=== PATIENT | male | born 1970 | race Hispanic/Latino ===

== ENCOUNTER 2017-08-25 08:03 | Emergency (ER) | payer SELFPAY ==
[2017-08-25 08:37] LABS: #Eosinphils 0.1 thou/uL (0.0-0.7); #Lymphocytes 1.7 thou/uL (1.20-3.40); #Monocytes 0.4 thou/uL (0.11-0.59); #Neutrophils 4.8 thou/uL (1.40-6.50); %Basophils 0.2 % (0.0-1.0); %Eosinophils 1.3 % (0.0-10.0); %Lymphocytes 23.8 % (21.0-51.0); %Monocytes 5.5 % (0.0-10.0); %Neutrophils 69.2 % (42.0-75.0); Hemoglobin 16.3 g/dL (14.0-18.0); Mean Corpuscular HGB CONC 35.2 g/dL (32.0-36.0); Mean Corpuscular Hemoglobin 33.4 pg (27.0-31.0); Mean Corpuscular Volume 94.8 fl (80.0-94.0); Mean Platelet Volume 7.5 fL (7.4-10.4); Platelet Count 194 thou/uL (130-400); RBC Distribution Width 12.1 % (11.5-14.5); Red Blood Cell (RBC) Count 4.88 mill/uL (4.70-6.10)
[2017-08-25 08:46] LABS: Bilirubin Negative (Negative); Blood, Urine Negative (Negative); Clarity CLEAR (Clear); Glucose, Urine (Dipstick) >=1000 mg/dL (Negative); Leukocyte Negative (Negative); Nitrite Negative (Negative); Protein, Urine (Dipstick) Negative (Neg-Trace); Specific Gravity, Urine 1.029 (1.002-1.036); Urobilinogen 0.2 mg/dL (0.2-1.0); pH, Urine 5.5 (5.0-9.0)
[2017-08-25 08:59] LABS: ALT (SGPT) 25 U/L (8-55); AST (SGOT) 25 U/L (5-34); Albumin 3.8 g/dL (3.5-5.0); Alkaline Phosphatase 124 U/L (40-150); Anion Gap 11 mmol/L (10-20); BUN (Urea Nitrogen) 14 mg/dL (8.9-20.6); Bilirubin, Total 0.6 mg/dL (0.2-1.2); Calc. Creatinine Clearance 0 mL/min (70-130); Calcium 9.4 mg/dL (7.8-10.44); Carbon Dioxide 24 mmol/L (22-29); Chloride 109 mmol/L (98-107); Estimated GFR-MDRD 84; Globulin 3.7 g/dL (2.4-3.5); Glucose 290 mg/dL (70-105); Potassium 4.1 mmol/L (3.5-5.1); Protein, Total 7.5 g/dL (6.0-8.3); Sodium 140 mmol/L (136-145)
[2017-08-25] MEDS ORDERED: Ondansetron HCl/PF 4 MG/2 ML Vial ONE (09:05)
[2017-08-25 09:15] LABS: Magnesium 2.3 mg/dL (1.6-2.6); Phosphorus 2.7 mg/dL (2.3-4.7)
[2017-08-25 09:27] LABS: Base Excess-Venous -1.5 mmol/L (-30.0-30.0); Bicarbonate (HCO3v) 23.4 mmol/L (1.0-85.0); CO2 Tension (PvCO2) 39.3 mmHg (41.0-51.0); Hemoglobin - Calc 14.8 g/dL (12.0-18.0); O2 Tension (PvO2) 77.3 mmHg (35.0-45.0); T. Carbon Dioxide 24.6 mmol/L (1.0-85.0); pH (Venous) 7.384 (7.35-7.45); vO2 Saturation-calc 95.1 % (0.0-100.0)
== END 2017-08-25 11:22 | disposition home or self-care (01) ==
LOC: ERS 08:03
DX: E11.65 Type 2 diabetes mellitus with hyperglycemia (principal); R11.2 Nausea with vomiting, unspecified; Z79.899 Other long term (current) drug therapy
CPT/HCPCS: 36415; 36416; 80053; 81003; 82010; 82330; 82803; 83735; 84100; 85025; 96361; 96374; J2405

== ENCOUNTER 2017-11-28 09:44 | Emergency (ER) | payer SELFPAY | END 2017-11-28 12:37 | disposition left against medical advice (07) | LOC: ERS 09:44 | DX: Z53.21 Procedure and treatment not carried out due to patient leaving prior to being seen by health care provider (principal) | CPT/HCPCS: 36416 ==

== ENCOUNTER 2020-04-25 10:38 | Inpatient (IN) | payer OTHER, SELFPAY ==
[2020-04-25] MEDS ORDERED: Lorazepam 2 MG/ML VIAL ONE (10:51)
[2020-04-25] MEDS ORDERED: PROPOFOL 20 ML ONE (11:01)
[2020-04-25] MEDS ORDERED: Succinylcholine Chloride 20 MG/ML 10 ml SYRINGE FS ONE (11:01)
[2020-04-25] MEDS ORDERED: DOBUTamine 500 mg/250 ml 250 ML ONE (11:05)
[2020-04-25] MEDS ORDERED: EPINEPHrine 1 MG/10 ML Abboject SYRINGE ONE (11:11)
[2020-04-25 11:19] LABS: #Basophils 0.1 thou/uL (0.0-0.2); #Lymphocytes 2.2 thou/uL (1.20-3.40); #Monocytes 0.7 thou/uL (0.11-0.59); #Neutrophils 7.5 thou/uL (1.40-6.50); %Basophils 0.5 % (0.0-1.0); %Eosinophils 0.2 % (0.0-10.0); %Lymphocytes 20.7 % (21.0-51.0); %Monocytes 6.7 % (0.0-10.0); %Neutrophils 71.9 % (42.0-75.0); Hemoglobin 14.2 g/dL (14.0-18.0); Mean Corpuscular HGB CONC 34.3 g/dL (32.0-36.0); Mean Corpuscular Hemoglobin 33.6 pg (27.0-31.0); Mean Corpuscular Volume 97.9 fL (78.0-98.0); Mean Platelet Volume 9.2 fL (7.4-10.4); Platelet Count 213 thou/uL (130-400); RBC Distribution Width 12.5 % (11.5-14.5); Red Blood Cell (RBC) Count 4.23 mill/uL (4.70-6.10); White Blood Cell (WBC) Count 10.5 thou/uL (4.8-10.8)
[2020-04-25] MEDS ORDERED: Fentanyl 100 MCG/2 ML VIAL ONE ×2 (11:24→11:48)
[2020-04-25 11:25] LABS: INR-International Normal Ratio 1.2; PTT 26.2 sec (22.9-36.1)
[2020-04-25] MEDS ORDERED: fentaNYL Citrate/PF 2,000 MCG in Sodium Chloride 0.9% 60 ML IV SCH ×3 (11:30→14:08)
[2020-04-25] MEDS ORDERED: EPINEPHrine 1 MG/ML AMP ONE (11:32)
--- NOTE | 2020-04-25 11:37 | RAD ---
Exam: Chest one view HISTORY:Chest pain Comparison: 05/26/2012 FINDINGS: Lines and tubes: Endotracheal tube approximately 1 cm above the alaina. Nasogastric tube extends beyo nd the diaphragm. Cardiac silhouette:Cardiomegaly. Aorta: Unremarkable Pulmonary vessels: Normal Costophrenic angles: Clear LUNGS: Hypoventilation. Accentuation lung parenchyma likely due to diminished lung volumes. Pneumothorax: None Osseous abnormalities: None IMPRESSION: 1. Endotracheal tube and nasogastric tube as above. Distal tip of the endotracheal is approximately 1 cm above the alaina. Consider repositioning.
[2020-04-25 11:40] LABS: ALT (SGPT) 32 U/L (8-55); AST (SGOT) 29 U/L (5-34); Albumin 3.8 g/dL (3.5-5.0); Alkaline Phosphatase 48 U/L (40-110); Anion Gap 23 mmol/L (10-20); BUN (Urea Nitrogen) 43 mg/dL (8.9-20.6); Bilirubin, Total 0.5 mg/dL (0.2-1.2); Calc. Creatinine Clearance 0 mL/min (70-130); Calcium 8.5 mg/dL (7.8-10.44); Carbon Dioxide 12 mmol/L (22-29); Chloride 108 mmol/L (98-107); Estimated GFR-MDRD 24; Globulin 3.1 g/dL (2.4-3.5); Glucose 222 mg/dL (70-105); Potassium 5.9 mmol/L (3.5-5.1); Protein, Total 6.9 g/dL (6.0-8.3); Sodium 137 mmol/L (136-145)
[2020-04-25 12:02] LABS: CKMB 1.5 ng/mL (0-6.6)
[2020-04-25 12:13] LABS: Bilirubin 1+ (Negative); Blood, Urine Negative (Negative); Calcium Oxalate Crystals Rare HPF (None Seen); Clarity Extra Turbid (Clear); Glucose, Urine (Dipstick) 50 mg/dL (Negative); Ketone, Urine Trace mg/dL (Negative); Leukocyte Negative Leu/uL (Negative); Nitrite Negative (Negative); Protein, Urine (Dipstick) 300 mg/dL (Neg-Trace); RBC/HPF 0-3 HPF (0-3); Specific Gravity, Urine 1.027 (1.002-1.036); Squamous Epithelial 0-3 HPF (0-3); pH, Urine 5.5 (5.0-9.0)
[2020-04-25 12:14] LABS: Bacteria/HPF 1+ HPF (None Seen)
[2020-04-25] MEDS ORDERED: Sodium Chloride 0.9% 200 ML IV PRN (12:21)
[2020-04-25 12:45] LABS: Actual Bicarbonate (HCO3a) 13.8 mEq/L (22-28); Base Excess (BEa) -12.5 mEq/L (-2.0 to +3.0); CO2 Tension 33.3 mmHg (35.0-45.0); Calcium, Ionized (arterial) 1.09 mmol/L (1.12-1.30); Carboxyhemoglobin (COHb) 0.1 gm% (0.0-3.0); Hemoglobin (Hb) 13.9 g/dL (14.0-18.0); O2 Tension (PaO2), arterial 189.3 mmHg (80.0-100.0)
[2020-04-25 12:49] LABS: Puncture Site RRAD; pH, Arterial 7.24 (7.35-7.45)
[2020-04-25 12:50] LABS: ALV-art Gradient 125.575 (0-20)
[2020-04-25] MEDS ORDERED: Propofol BOLUS 1,000 MG/100 ML VIAL IV PRN (12:54)
[2020-04-25] MEDS ORDERED: Lorazepam 2 MG/ML VIAL SLOW IVP PRN (12:54)
[2020-04-25] MEDS ORDERED: Fentanyl BOLUS 250 ML IVPB PRN (12:54)
[2020-04-25] MEDS ORDERED: Morphine 2 MG/ML VIAL SLOW IVP PRN (12:54)
[2020-04-25] MEDS ORDERED: DISCONTINUE PREVIOUS NARCOTIC PAIN MEDICATIONS AND BENZODIAZEPINES FS SCH (12:54)
[2020-04-25] MEDS ORDERED: Ventilator Sedation Protocol 1 EACH FS SCH (13:00)
--- NOTE | 2020-04-25 13:24 | CON ---
DATE OF CONSULTATION: 04/25/2020 REASON FOR CONSULTATION: Complete heart block. HISTORY OF PRESENT ILLNESS: Mr. Raines is a 49-year-old gentleman, who comes to the hospital [facility] after he was not feeling well and had a syncopal spell. He came into the [facility] and was found to have a heart rate in the 30s, so he was immediately transferred over. When he came in to the emergency, he was very short winded, heart rate in the 20s, in complete heart block. He actually also had a seizure at that time, so he was intubated to protect his airway. He did get epinephrine drip as well as dobutamine drip without improvement in his heart rate. His blood pressure was in the 120s at one time. He was transcutaneously paced; however, the pacer was not really pacing him. His heart rate remained in the 30s. I came in. On my evaluation, he remained bradycardic and unstable, so he was taken emergently to the catheterization lab, where he received a temporary pacemaker. His blood pressure immediately came back up to the 160s, and epinephrine drip has been stopped. We are pacing him successfully at 100 beats per minute. I cannot get much history from him. We were planning on doing a heart catheterization as well; however, he had a creatinine of 2.8, so it would be a high risk and there is something better discussed with him. No evidence of ST-elevations on EKG. PAST MEDICAL HISTORY: From old chart preview: 1. Type 2 diabetes. 2. Noncompliance with medications in the past. 3. Possibly diabetic neuropathy. 4. Obesity. 5. Chronic back pain. PAST SURGICAL HISTORY: None. OUTPATIENT MEDICATIONS: Unobtainable at this time. We are awaiting his medication list. SOCIAL HISTORY: He is currently an inmate. 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 No alcohol, tobacco, or drugs. From the social history in 2016, had two children at that time, living in [place], currently in [facility]. FAMILY HISTORY: Sister with diabetes and end-stage renal disease, transplant recipient. REVIEW OF SYSTEMS: Unobtainable as the patient is intubated. PHYSICAL EXAMINATION: VITAL SIGNS: Heart rate of 29, up to 100 now, paced, blood pressure 168/72 after being paced, respiratory rate 18, saturating 96% on room air, temperature 97.2. GENERAL: Sedated, intubated. NECK: Supple. LUNGS: Clear. CARDIOVASCULAR: S1 and S2. No S3 or S4. Heart rate in the 30s. ABDOMEN: Soft, nontender. EXTREMITIES: No edema. SKIN: Warm and dry. LABORATORY DATA: Laboratory work was reviewed. Sodium of 137, potassium was 5.9, chloride of 108, carbon dioxide of 12, anion gap of 23, BUN of 43, creatinine 2.78, unclear as to what his baseline might be now. GFR of 24, glucose of 222. Troponin initially 0.03 and CK-MB of 1.5. AST and ALT are normal as well as albumin. COVID test is pending. ASSESSMENT AND PLAN: 1. Third-degree heart block. 2. Cardiogenic shock requiring emergent temporary pacemaker. This is due to bradycardia heart block. 3. Type 2 diabetes. PLAN: 1. Continue transcutaneous pacing. 2. Continue to trend troponins. 3. apparently, there is history of him hitting his head, so we will do a CT of his brain to make sure there is no bleeding as he also had a seizure. 4. He will be admitted to ICU by hospitalist team. We will do an emergent CT of the brain now that he is more stable. 5. We will hold off on heart catheterization at this time as I have to know if there is any bleeding in his brain before attempting any intervention. 6. Hopefully, this is just related to complete heart block, and he will be better now that heart rate has been restored. 7. He will likely need permanent pacemaker tomorrow depending on clinical evolution. 8. We will get an echocardiogram. 9. The patient is critically ill, and would not be unexpected. 10. 90 minutes of critical care time including the ER evaluation and care and resuscitation, pacemaker placement. Job ID: [id number]
[2020-04-25] MEDS: Sodium Bicarbonate 150 MEQ in Dextrose 5% in Water 1,000 ML IV SCH ×2 (14:04→21:33)
[2020-04-25] MEDS: Heparin 5,000 UNITS/ML VIAL SC SCH ×2 (14:06→20:35)
[2020-04-25 14:07] LABS: SARS-CoV-2 NAA Rapid Test Not Detected (NotDetected)
[2020-04-25 14:10] LABS: Anion Gap 20 mmol/L (10-20); BUN (Urea Nitrogen) 43 mg/dL (8.9-20.6); Calc. Creatinine Clearance 62 mL/min (70-130); Calcium 8.3 mg/dL (7.8-10.44); Carbon Dioxide 15 mmol/L (22-29); Chloride 108 mmol/L (98-107); Estimated GFR-MDRD 26; Glucose 232 mg/dL (70-105); Potassium 5.8 mmol/L (3.5-5.1); Sodium 137 mmol/L (136-145)
[2020-04-25 14:22] LABS: Troponin I 0.031 ng/mL (< 0.028)
[2020-04-25] MEDS: Propofol 1,000 MG/100 ML VIAL IV PRN ×3 (15:19→21:15)
--- NOTE | 2020-04-25 17:08 | ULT ---
RENAL ULTRASOUND: Date: 04-25-2020 PROVIDED CLINICAL HISTORY: Acute kidney injury. FINDINGS: Right kidney measures about 10.3 x 6.5 x 7 cm and demonstrates no evidence for hydronephrosis or mass . Left kidney measures about 12 x 6 x 6 cm and demonstrates no evidence for hydronephrosis or mass. The urinary bladder is decompressed by Olivier catheter and not well evaluated. IMPRESSION: No evidence for hydronephrosis. POS: DARIUS
[2020-04-25] MEDS ORDERED: CCU Insulin Drip FS ONE (17:53)
[2020-04-25] MEDS ORDERED: Dextrose 5% in Water 1,000 ML IV PRN (17:55)
[2020-04-25] MEDS ORDERED: Dextrose 50% Abboject 50 ML SYRINGE SLOW IVP PRN (17:55)
--- NOTE | 2020-04-25 18:04 | PDOC.HHP ---
Hospitalist HPI - History of Present Illness Collapse and syncope History of Present Illness: 49 YO man with a PMH of DM who had a syncopal incident. Pt is currently intubated and sedated and unable to provide further hx. It is stated hat pt had a syncopal episode and when EMS got there, he was in 3rd degree heart block with his HR in the 20s. Pt was given Atropine with no response and then temporarily paced with some success. Upon arrival to the ER, the temporary pacing was not to be unsuccessful. Cardiology was consulted and pt was emergently taken to the laboratory coordinator for and emergent pacer. Also noted in the ER were 2 seizures which aborted spontaneously, so he was intubated for airway protection. Its unclear if pt has a seizure hx. Pt was also hypotensive and required pressors Pt is now s/p cath and pacer placement. He was seen in the ICU, intubated and sedated Hospitalist ROS - Review of Systems ROS unobtainable: due to endotracheal tube (Unable to obtain) - Medication Medications: Active Medications Generic Name Dose Route Start Last Admin Trade Name Freq PRN Reason Stop Dose Admin Heparin Sodium (Porcine) 5,000 units 04/25/20 15:00 04/25/20 14:06 Heparin SC 5,000 units TID ESTRELLA Administration Sodium Bicarbonate 150 meq/ 1,150 mls @ 125 mls/hr 04/25/20 13:00 04/25/20 14 :04 Dextrose/Water IV 1,150 mls .Q9H12M ESTRELLA Administration Propofol 1,000 mg 04/25/20 12:54 04/25/20 15:19 Diprivan IV 05/25/20 12:54 1,000 mg INF PRN Administration TO ACHIEVE GOAL RASS Protocol Hospitalist History - Past Medical History Source: other (Er Dr) Cardiac: reports: Syncope Endocrine: reports: Diabetes - Exam General - other findings: Intubated and sedated Eye: PERRL ENT: normocephalic atraumatic Neck: supple, symmetric, no JVD, no thyromegaly Heart: RRR, no murmur, no gallops, no rubs Respiratory: CTAB, no wheezes, no rales, no ronchi Gastrointestinal: soft, non-tender, non-distended, normal bowel sounds Extremities: no cyanosis, no clubbing Skin: no lesions Neurological - other findings: Sedated Musculoskeletal: normal strength, no muscle wasting Psychiatric - other findings: Sedated. Unable to assess. Hospitalist Results - Labs Result Diagrams: 04/25/20 11:02 04/25/20 13:27 Lab results: WBC 10.5 thou/uL (4.8-10.8) 04/25/20 11:02 Hgb 14.2 g/dL (14.0-18.0) 04/25/20 11:02 Hct 41.4 % (42.0-52.0) L 04/25/20 11:02 MCV 97.9 fL (78.0-98.0) 04/25/20 11:02 Plt Count 213 thou/uL (130-400) 04/25/20 11:02 Neutrophils % 71.9 % (42.0-75.0) 04/25/20 11:02 ABG pH 7.24 (7.35-7.45) L* 04/25/20 12:45 ABG pCO2 33.3 mmHg (35.0-45.0) L 04/25/20 12:45 ABG pO2 189.3 mmHg (80.0-100.0) H 04/25/20 12:45 Sodium 137 mmol/L (136-145) 04/25/20 13:27 Potassium 5.8 mmol/L (3.5-5.1) H 04/25/20 13:27 Chloride 108 mmol/L (98-107) H 04/25/20 13:27 Carbon Dioxide 15 mmol/L (22-29) L 04/25/20 13:27 BUN 43 mg/dL (8.9-20.6) H 04/25/20 13:27 Creatinine 2.63 mg/dL (0.7-1.3) H 04/25/20 13:27 Glucose 232 mg/dL (70-105) H 04/25/20 13:27 Calcium 8.3 mg/dL (7.8-10.44) 04/25/20 13:27 Total Bilirubin 0.5 mg/dL (0.2-1.2) 04/25/20 11:02 AST 29 U/L (5-34) 04/25/20 11:02 ALT 32 U/L (8-55) 04/25/20 11:02 Alkaline Phosphatase 48 U/L (40-110) 04/25/20 11:02 CK-MB (CK-2) 1.5 ng/mL (0-6.6) 04/25/20 11:01 Troponin I 0.031 ng/mL (< 0.028) H 04/25/20 13:27 Serum Total Protein 6.9 g/dL (6.0-8.3) 04/25/20 11:02 Albumin 3.8 g/dL (3.5-5.0) 04/25/20 11:02 Urine Ketones Trace mg/dL (Negative) A 04/25/20 11:51 Urine Blood Negative (Negative) 04/25/20 11:51 Urine Nitrite Negative (Negative) 04/25/20 11:51 Ur Leukocyte Esterase Negative Matilda/uL (Negative) 04/25/20 11:51 Urine RBC 0-3 HPF (0-3) 04/25/20 11:51 Urine WBC 11-20 HPF (0-3) A 04/25/20 11:51 Ur Squamous Epith Cells 0-3 HPF (0-3) 04/25/20 11:51 Urine Bacteria 1+ HPF (None Seen) A 04/25/20 11:51 Hospitalist H&P A/P - Problem (1) Third degree heart block Code(s): I44.2 - ATRIOVENTRICULAR BLOCK, COMPLETE Status: Acute Assessment and Plan: s/p temp emergent pacemaker placement. Cardiology is on board. Will follow up with their recs. Monitor on telemetry. 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 Will monitor BG, cover with SSI. Check HgA1c. (4) Obesities, morbid Code(s): E66.01 - MORBID (SEVERE) OBESITY DUE TO EXCESS CALORIES Status: Chronic Assessment and Plan: Will discuss when more appropriate. (5) Seizure Code(s): R56.9 - UNSPECIFIED CONVULSIONS Status: Acute Assessment and Plan: Unsure if pt has a hx of seizures. He is currently being sedated. Will need a CT brain and EEG when more stable. (6) Respiratory failure Code(s): J96.90 - RESPIRATORY FAILURE, UNSP, UNSP W HYPOXIA OR HYPERCAPNIA Status: Acute Qualifiers: Chronicity: acute Respiratory failure complication: hypoxia Qualified Code(s): J96.01 - Acute respiratory failure with hypoxia Assessment and Plan: Pt was intubated for airway protection after his sz. Will defer mgt to [facility]. (7) Syncope and collapse Code(s): R55 - SYNCOPE AND COLLAPSE Status: Acute Assessment and Plan: Likely form 3rd degree heart block. (8) Metabolic acidosis Code(s): E87.2 - ACIDOSIS Status: Acute Assessment and Plan: Pt is on bicarb drip. Renal is on board. Will monitor bicarb. - Plan Plan: PPx: SCDs. CODE: FULL. Dispo: Cont current mgt
[2020-04-25] MEDS ORDERED: Ondansetron PF 4 MG/2 ML Vial IVP PRN (18:15)
[2020-04-25 18:23] LABS: Troponin I 0.055 ng/mL (< 0.028)
[2020-04-25] MEDS: DOBUTamine 500 mg/250 ml 250 ML IVPB SCH (18:23)
[2020-04-25] MEDS ORDERED: HUMULIN R 100 UNITS in Sodium Chloride 0.9% 100 ML IVPB SCH (18:30)
--- NOTE | 2020-04-25 19:44 | CON ---
DATE OF CONSULTATION: HISTORY OF PRESENT ILLNESS: Yo Raines is a 49-year-old morbidly obese gentleman, who was transferred from [facility] via ambulance to [facility]. He was being bagged. Apparently, he was having some respiratory distress and was found to be in complete heart block. He was taken to the cardiac medical laboratory technicians and a temporary pacemaker was placed in since an external pacer was ineffective. He is presently intubated and sedated, so no additional information is obtained. PAST MEDICAL HISTORY: Includes diabetes, high cholesterol, hypertension. MEDICATIONS: Include: 1. Metformin 500 two a day. 2. Aspirin. 3. Pravastatin 10. 4. Gemfibrozil 600. 5. Lisinopril 20. PAST SURGICAL HISTORY: He has had no previous surgical procedures. Additional information from the he had a coronavirus serology done 2 weeks ago, which was negative. His EKG today shows complete heart block. REVIEW OF SYSTEMS: Otherwise, unobtainable. PHYSICAL EXAMINATION: VITAL SIGNS: His pulse is 100, he is being paced, blood pressure 130/80, sats 100%, and respiratory rate 15. HEENT: Pupils are equal. CHEST: No wheezing. No crackles. CARDIAC: Normal S1, S2. No gallops. ABDOMEN: No masses. LABORATORY DATA: Chest x-ray is clear. His labs were pertinent for creatinine of 2.78, BUN 43, potassium 5.3. PO2 of 189, pCO2 of 23, pH 7.24. White count 10,000, H and H 14 and 40, platelet count is normal. IMPRESSION: 1. Complete heart block, respiratory distress, requiring intubation, temporary pacemaker. 2. Diabetes. 3. Obesity. 4. History of previous syncope. 5. Hyperlipidemia. PLAN: Continue vent support. We will probably reassess in the next 24 hours. His overall cardiopulmonary status is stable. We will start weaning. Otherwise, supportive care. DVT prophylaxis and proton pump inhibitors. 45 minutes of critical care time. Job ID: [id number]
[2020-04-25 19:59] LABS: Anion Gap 18 mmol/L (10-20); BUN (Urea Nitrogen) 38 mg/dL (8.9-20.6); Calc. Creatinine Clearance 80 mL/min (70-130); Calcium 8.1 mg/dL (7.8-10.44); Carbon Dioxide 16 mmol/L (22-29); Chloride 107 mmol/L (98-107); Estimated GFR-MDRD 35; Glucose 196 mg/dL (70-105); Potassium 4.5 mmol/L (3.5-5.1); Sodium 136 mmol/L (136-145)
[2020-04-25] MEDS: Famotidine/PF 20 mg/2ml Vial SLOW IVP SCH (20:35)
[2020-04-25] MEDS: Insulin Regular 300 UNITS/3 ML VIAL SC PRN ×2 (20:40→23:47)
--- NOTE | 2020-04-25 20:41 | CON ---
DATE OF CONSULTATION: REASON FOR CONSULTATION: Hyperkalemia. HISTORY OF PRESENT ILLNESS: This is a 49-year-old gentleman, who presented to the hospital early today from retirement and was noted to have hyperkalemia. The patient had a complete heart block. The patient's creatinine has increased to 2.7 from a baseline of 0.96 three years ago. No further history is available. The patient is intubated. PAST MEDICAL HISTORY: Diabetes mellitus, noncompliance, obesity, chronic back pain. HOME MEDICATIONS: List reviewed. HOSPITAL MEDICATIONS: List reviewed. REVIEW OF SYSTEMS: Unobtainable. SOCIOECONOMIC HISTORY: The patient is an inmate. PHYSICAL EXAMINATION: GENERAL: On exam, the patient is resting. Vital Signs: Afebrile, pulse 75, breathing at 16, blood pressure 120/73. HEENT: Head normocephalic and atraumatic. Eyes intact, no ulcers. Nose intact, no ulcers. Ears intact, no ulcers. Neck: Supple. No JVD. Chest: Symmetrical and clear. Cardiovascular: Shows S1 and S2, no rub, no murmur. Gastrointestinal: Abdomen is soft, bowel sounds positive. Extremities: Show no edema or ulcers. Skin: Shows no rash or petechiae. Musculoskeletal: Shows no joint swelling or stiffness. Genitourinary: Shows no Olivier or CVA tenderness. Neurologic: The patient is resting and intubated. LABORATORY DATA: Show potassium 5.9. ASSESSMENT AND PLAN: 1. Acute kidney injury with chronic kidney disease, stage 4, due to cardiorenal syndrome. Continue aggressive resuscitation measures. 2. Metabolic acidosis, start bicarbonate drip. 3. Hyperkalemia. Recheck potassium. If it is elevated, consider dialysis. 4. Overall prognosis is poor. Job ID: [id number]
[2020-04-26] MEDS: Propofol 1,000 MG/100 ML VIAL IV PRN ×7 (00:30→23:36)
[2020-04-26] MEDS: DOBUTamine 500 mg/250 ml 250 ML IVPB SCH ×2 (02:06→09:22)
[2020-04-26 04:28] LABS: #Lymphocytes 1.3 thou/uL (1.20-3.40); #Monocytes 0.8 thou/uL (0.11-0.59); #Neutrophils 7.5 thou/uL (1.40-6.50); %Basophils 0.4 % (0.0-1.0); %Eosinophils 0.3 % (0.0-10.0); %Lymphocytes 13.4 % (21.0-51.0); %Monocytes 7.9 % (0.0-10.0); %Neutrophils 78.1 % (42.0-75.0); Hemoglobin 12.8 g/dL (14.0-18.0); Mean Corpuscular HGB CONC 35.1 g/dL (32.0-36.0); Mean Platelet Volume 8.6 fL (7.4-10.4); Platelet Count 169 thou/uL (130-400); RBC Distribution Width 12.5 % (11.5-14.5); Red Blood Cell (RBC) Count 3.77 mill/uL (4.70-6.10); White Blood Cell (WBC) Count 9.6 thou/uL (4.8-10.8)
[2020-04-26 04:53] LABS: Anion Gap 17 mmol/L (10-20); BUN (Urea Nitrogen) 24 mg/dL (8.9-20.6); Calc. Creatinine Clearance 119 mL/min (70-130); Calcium 8.4 mg/dL (7.8-10.44); Carbon Dioxide 21 mmol/L (22-29); Chloride 105 mmol/L (98-107); Estimated GFR-MDRD 55; Glucose 221 mg/dL (70-105); Potassium 3.9 mmol/L (3.5-5.1); Sodium 139 mmol/L (136-145)
[2020-04-26] MEDS ORDERED: CEFAZOLIN 2 GM in Premix Bag 1 BAG IVPB SCH (05:15)
[2020-04-26] MEDS: Insulin Regular 300 UNITS/3 ML VIAL SC PRN ×2 (05:31→16:15)
[2020-04-26] MEDS: Sodium Bicarbonate 150 MEQ in Dextrose 5% in Water 1,000 ML IV SCH ×2 (05:33→17:43)
[2020-04-26 06:58] LABS: Actual Bicarbonate (HCO3a) 24.3 mEq/L (22-28); Base Excess (BEa) 1.7 mEq/L (-2.0 to +3.0); CO2 Tension 32.1 mmHg (35.0-45.0); Carboxyhemoglobin (COHb) 0.3 gm% (0.0-3.0); Hemoglobin (Hb) 13.5 g/dL (14.0-18.0); O2 Tension (PaO2), arterial 111.9 mmHg (80.0-100.0); Potassium - ABG Lab 3.93 mmol/L (3.70-5.30)
[2020-04-26 07:01] LABS: ALV-art Gradient 133.175 (0-20); Puncture Site RRA
--- NOTE | 2020-04-26 09:08 | PDOC.HOSPP ---
- Subjective Encounter Date: 04/26/20 Encounter Time: 09:06 - Objective Vital Signs & Weight: Vital Signs (12 hours) Temp Pulse Resp BP 04/26/20 08:08 100 04/26/20 07:00 98.3 F 04/26/20 06:00 20 04/26/20 04:00 98.5 F 100 20 154/88 H 04/26/20 02:28 100 128/92 H 04/26/20 02:00 20 04/26/20 00:38 100 133/79 04/26/20 00:00 20 04/25/20 22:00 20 04/25/20 21:47 100 112/66 Weight Weight 286 lb 9.615 oz Most Recent Monitor Data Heart Rate from ECG 100 NIBP 115/76 NIBP BP-Mean 89 Respiration from ECG 20 SpO2 100 I&O: 04/25/20 04/26/20 04/27/20 06:59 06:59 06:59 Intake Total 2431 Output Total 3580 350 Balance -1149 -350 Result Diagrams: 04/26/20 03:37 04/26/20 03:37 Additional Labs: Accuchecks 04/25/20 04/25/20 04/25/20 23:52 20:41 17:56 POC Glucose 181 H 185 H 192 H 04/25/20 04/25/20 13:26 11:01 POC Glucose 215 H 216 H Radiology Reviewed by me: Yes (cxr- ET tube, epicardial pacer) Hospitalist ROS - Medication Medications: Active Medications Generic Name Dose Route Start Last Admin Trade Name Freq PRN Reason Stop Dose Admin Famotidine 20 mg 04/25/20 21:00 04/25/20 20:35 Pepcid SLOW IVP 20 mg BID ESTRELLA Administration Heparin Sodium (Porcine) 5,000 units 04/25/20 15:00 04/25/20 20:35 Heparin SC 5,000 units TID ESTRELLA Administration Sodium Bicarbonate 150 meq/ 1,150 mls @ 125 mls/hr 04/25/20 13:00 04/26/20 05 :33 Dextrose/Water IV 1,150 mls .Q9H12M ESTRELLA Administration Dobutamine HCl/Dextrose 250 mls @ 0 mls/hr 04/25/20 13:45 04/26/20 02:06 Dobutamine 500 Mg/250 Ml IVPB 250 mls INF ESTRELLA Administration As Directed Fentanyl Citrate 2,000 mcg/ 100 mls @ 0 mls/hr 04/25/20 14:08 04/25/20 14:30 Sodium Chloride IV 05/25/20 14:08 100 mls INF ESTRELLA Administration Protocol Per Protocol Insulin Human Regular 0 units 04/25/20 17:55 04/26/20 05:31 Humulin R SC 4 unit .MODERATE SLIDING SC PRN Administration Moderate Correctional Scale Propofol 1,000 mg 04/25/20 12:54 04/26/20 06:18 Diprivan IV 05/25/20 12:54 1,000 mg INF PRN Administration TO ACHIEVE GOAL RASS Protocol Sodium Chloride 10 ml 04/25/20 21:00 04/25/20 21:16 Flush - Normal Saline IVF 10 ml Q12HR ESTRELLA Administration Sodium Chloride 10 ml 04/25/20 21:00 04/25/20 21:17 Flush - Normal Saline IVF Not Given Q12HR ESTRELLA - Exam General Appearance: awake alert General - other findings: intubated Heart: RRR Respiratory: CTAB Gastrointestinal: soft, normal bowel sounds Extremities: no edema Hosp A/P (1) Respiratory failure requiring intubation Code(s): J96.90 - RESPIRATORY FAILURE, UNSP, UNSP W HYPOXIA OR HYPERCAPNIA Status: Acute (2) Third degree heart block Code(s): I44.2 - ATRIOVENTRICULAR BLOCK, COMPLETE Status: Acute (3) Acute renal failure Status: Acute Qualifiers: Acute renal failure type: unspecified Qualified Code(s): N17.9 - Acute kidney failure, unspecified (4) Cardiogenic shock Code(s): R57.0 - CARDIOGENIC SHOCK Status: Acute (5) Metabolic acidosis Code(s): E87.2 - ACIDOSIS Status: Acute (6) Syncope and collapse Code(s): R55 - SYNCOPE AND COLLAPSE Status: Acute (7) Diabetes Code(s): E11.9 - TYPE 2 DIABETES MELLITUS WITHOUT COMPLICATIONS Status: Chronic Qualifiers: Diabetes mellitus type: type 2 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
[2020-04-26] MEDS: Famotidine/PF 20 mg/2ml Vial SLOW IVP SCH ×2 (09:22→21:54)
[2020-04-26] MEDS: Heparin 5,000 UNITS/ML VIAL SC SCH ×3 (09:23→21:54)
--- NOTE | 2020-04-26 09:47 | RAD ---
CHEST 1 VIEW PORTABLE: HISTORY: Respiratory insufficiency. COMPARISON: 04/25/2020. FINDINGS: Monitor leads overlie the chest and are somewhat obscured. Endotracheal tube and NG tubes appear to be in place. Mild increased markings bilaterally with somewhat less than optimal inspiration without confluent pneumonia, overt edema, or significant pleural effusion. IMPRESSION: Less than optimal inspiration. Mild vascular congestion. Little change from study. Continue short- term followup. POS: RRE
--- NOTE | 2020-04-26 10:36 | PRG ---
DATE OF SERVICE: 04/26/2020 SUBJECTIVE: This morning, he is intubated in the vent, sedated. He is going for clinical laboratory aide. He had bradycardia requiring temporary pacemaker. OBJECTIVE: GENERAL: When his sedation withheld, he is awake and responsive. VITAL SIGNS: Pulse 100, blood pressure 160/60, and respirations 20. I's and O's are normal. CHEST: No wheezing. No crackles. CARDIAC: Normal S1, S2. No gallops. ABDOMEN: No masses. LABORATORY DATA: White count is normal. PO2 is 111, pCO2 of 30, rate of 20. Lytes are normal. Creatinine blood sugar 181. X-ray is clear. IMPRESSION: Azotemia, chronic; diabetes; obesity; bradycardia; respiratory failure. Once he comes back from the cath, we can probably wean and extubate him. Continue supportive care. One-half hour of critical care time. Job ID: [id number]
--- NOTE | 2020-04-26 11:40 | CCLSPC ---
PREPROCEDURE DIAGNOSIS: Complete heart block and cardiogenic shock. POSTPROCEDURE DIAGNOSIS: Successful temporary pacemaker placement. SUMMARY: Mr. Raines is a 49-year-old gentleman who [facility] with syncopal spell, seizure, had to be intubated and was found to be in complete heart block, heart rate in the 30s. He was brought up emergently to the catheterization lab where he had a temporary pacemaker placed successfully pacing him at 100 beats per minute at 5 mA. His blood pressure immediately improving, off all drips now. Remains intubated however. RECOMMENDATIONS: 1. Continue supportive care. 2. Plan on permanent pacemaker placement tomorrow. Job ID: [id number]
[2020-04-26] MEDS ORDERED: CEFAZOLIN 1 GM VIAL ONE (12:07)
[2020-04-26] MEDS ORDERED: DOPamine 400 MG/D5W 250 ML 250 ML ONE (12:07)
[2020-04-26] MEDS ORDERED: Gentamicin 80 MG/2 ML VIAL ONE (12:07)
[2020-04-26] MEDS ORDERED: DOPamine 400 MG/D5W 250 ML 250 ML IVPB SCH ×2 (13:00→13:39)
--- NOTE | 2020-04-26 13:22 | RAD ---
EXAM: Portable chest PROVIDED CLINICAL HISTORY: Post cardiac device placement COMPARISON: 04/26/2020 4:54 AM FINDINGS: Interval left subclavian cardiac pacing device with lead tips overlying expected locations of RA and RV. Additional significant interval change with respect to the prior examination is not apparent. IMPRESSION: As above.
--- NOTE | 2020-04-26 13:31 | PRG ---
DATE OF SERVICE: 04/26/2020 SUBJECTIVE: The patient is seen in ICU. The patient remains intubated. OBJECTIVE: GENERAL: The patient is in ICU. VITAL SIGNS: Temperature 98.3; pulse 100 per minute, paced; respiratory rate 15; and blood 87/63. HEENT: Intubated. CVS: S1 and S2 heard. Bradycardiac. CHEST: Clear. GASTROINTESTINAL: Abdomen is obese. MUSCULOSKELETAL: No edema. NEUROLOGICAL: Intubated. LABORATORY DATA: Potassium 3.9, BUN is 24, and creatinine is 1.36. Urine output of 3580 mL yesterday. ASSESSMENT AND PLAN: 1. Acute kidney injury on chronic kidney disease. 2. Cardiorenal syndrome. Urine output is much better. Renal labs are much better. Avoid nephrotoxins. 3. Hyperkalemia, better. 4. Acidosis, stable. 5. Edema, controlled. 6. Hypertension. 7. Anemia, stable. 8. Morbid obesity. Overall, renal function is better. Avoid nephrotoxins. We will follow. Job ID: [id number]
[2020-04-26] MEDS: Acetaminophen 325 MG TAB PO PRN (21:57)
[2020-04-27] MEDS: Insulin Regular 300 UNITS/3 ML VIAL SC PRN ×3 (00:36→16:11)
[2020-04-27] MEDS: Sodium Bicarbonate 150 MEQ in Dextrose 5% in Water 1,000 ML IV SCH (03:31)
[2020-04-27] MEDS: Propofol 1,000 MG/100 ML VIAL IV PRN ×2 (03:31→05:30)
[2020-04-27 03:57] LABS: #Lymphocytes 1.2 thou/uL (1.20-3.40); #Monocytes 0.7 thou/uL (0.11-0.59); #Neutrophils 6.5 thou/uL (1.40-6.50); %Basophils 0.4 % (0.0-1.0); %Eosinophils 0.4 % (0.0-10.0); %Lymphocytes 14.6 % (21.0-51.0); %Monocytes 7.8 % (0.0-10.0); %Neutrophils 76.9 % (42.0-75.0); Hemoglobin 12.5 g/dL (14.0-18.0); Mean Corpuscular HGB CONC 35.7 g/dL (32.0-36.0); Mean Corpuscular Hemoglobin 34.5 pg (27.0-31.0); Mean Corpuscular Volume 96.6 fL (78.0-98.0); Mean Platelet Volume 8.4 fL (7.4-10.4); Platelet Count 154 thou/uL (130-400); RBC Distribution Width 12.3 % (11.5-14.5); Red Blood Cell (RBC) Count 3.62 mill/uL (4.70-6.10); White Blood Cell (WBC) Count 8.5 thou/uL (4.8-10.8)
[2020-04-27 04:26] LABS: Anion Gap 12 mmol/L (10-20); BUN (Urea Nitrogen) 15 mg/dL (8.9-20.6); Calc. Creatinine Clearance 144 mL/min (70-130); Calcium 8.1 mg/dL (7.8-10.44); Carbon Dioxide 31 mmol/L (22-29); Chloride 100 mmol/L (98-107); Estimated GFR-MDRD 69; Glucose 187 mg/dL (70-105); Potassium 4.1 mmol/L (3.5-5.1); Sodium 139 mmol/L (136-145)
[2020-04-27 07:36] LABS: Actual Bicarbonate (HCO3a) 32.1 mEq/L (22-28); Base Excess (BEa) 6.9 mEq/L (-2.0 to +3.0); CO2 Tension 46.8 mmHg (35.0-45.0); Calcium, Ionized (arterial) 1.08 mmol/L (1.12-1.30); Carboxyhemoglobin (COHb) 0.9 gm% (0.0-3.0); Hemoglobin (Hb) 16.7 g/dL (14.0-18.0); O2 Tension (PaO2), arterial 71.7 mmHg (80.0-100.0); pH, Arterial 7.45 (7.35-7.45)
[2020-04-27] MEDS: Famotidine/PF 20 mg/2ml Vial SLOW IVP SCH ×2 (07:47→20:21)
[2020-04-27] MEDS: Heparin 5,000 UNITS/ML VIAL SC SCH ×3 (07:47→20:21)
--- NOTE | 2020-04-27 08:19 | RAD ---
PORTABLE CHEST: HISTORY: Respiratory distress. COMPARISON: Prior day's study. Endotracheal and NG tubes remain in satisfactory position. Heart size is enlarged with a pacemaker i n place. Overall, I do not appreciate a significant change since the prior exam. IMPRESSION: Essentially stable exam. POS: ALISA
[2020-04-27 08:41] LABS: Puncture Site LRA
[2020-04-27] MEDS ORDERED: DC Sedation Protocol FS ONE (09:08)
--- NOTE | 2020-04-27 10:04 | PRG ---
DATE OF SERVICE: 04/27/2020 SUBJECTIVE: Yo Raines was awake, alert, responsive. He is off sedation. Appropriate. OBJECTIVE: VITAL SIGNS: Pulse 70, blood pressure 117/80, sats are 97%, respirations 16. CHEST: Decreased breath sounds without any wheezing. CARDIAC: Normal S1, S2. No gallops. ABDOMEN: No masses. LABORATORY DATA: White count 8000, H and H of 12 and 34, platelet count 154. PO2 of 71, pCO2 of , rate of 10. Lytes are normal. X-ray shows cardiomegaly. IMPRESSION: Respiratory failure, status post cardiopulmonary arrest secondary to significant bradycardia, status post pacemaker insertion. PLAN: We are going to stop sedation, wean and extubate. Thereafter, disposition as per Cardiology. PT, supportive care. TIME SPENT: One-half hour of critical care time. Job ID: [id number]
--- NOTE | 2020-04-27 11:03 | PDOC.HOSPP ---
- Subjective Encounter Date: 04/27/20 Encounter Time: 11:04 Subjective: awake, alert. post extubation - Objective Vital Signs & Weight: Vital Signs (12 hours) Temp Pulse Resp BP Pulse Ox 04/27/20 09:16 99 04/27/20 08:00 16 04/27/20 07:54 100.0 F H 04/27/20 07:04 70 107/70 04/27/20 06:00 13 04/27/20 04:00 99.4 F 13 04/27/20 02:11 70 04/27/20 02:00 12 04/27/20 00:00 99.7 F H Weight Admit Weight 286 lb Weight 286 lb 9.615 oz Most Recent Monitor Data Heart Rate from ECG 74 NIBP 157/87 NIBP BP-Mean 110 Respiration from ECG 16 SpO2 96 I&O: 04/26/20 04/27/20 04/28/20 06:59 06:59 06:59 Intake Total 2431 4118 131 Output Total 3580 2975 950 Balance -1149 1143 -819 Result Diagrams: 04/27/20 03:43 04/27/20 03:43 Additional Labs: Accuchecks 04/27/20 04/26/20 04/26/20 00:15 18:56 15:59 POC Glucose 180 H 213 H 250 H Hospitalist ROS - Medication Medications: Active Medications Generic Name Dose Route Start Last Admin Trade Name Freq PRN Reason Stop Dose Admin Acetaminophen 650 mg 04/25/20 18:15 04/26/20 21:57 Tylenol PO 650 mg Q4H PRN Administration Headache/Fever/Mild Pain (1-3) Famotidine 20 mg 04/25/20 21:00 04/27/20 07:47 Pepcid SLOW IVP 20 mg BID ESTRELLA Administration Heparin Sodium (Porcine) 5,000 units 04/25/20 15:00 04/27/20 07:47 Heparin SC 5,000 units TID ESTRELLA Administration Sodium Bicarbonate 150 meq/ 1,150 mls @ 125 mls/hr 04/25/20 13:00 04/27/20 03 :31 Dextrose/Water IV 1,150 mls .Q9H12M ESTRELLA Administration Dobutamine HCl/Dextrose 250 mls @ 0 mls/hr 04/25/20 13:45 04/26/20 09:22 Dobutamine 500 Mg/250 Ml IVPB 250 mls INF ESTRELLA Administration As Directed Insulin Human Regular 0 units 04/25/20 17:55 04/27/20 09:14 Humulin R SC 2 unit .MODERATE SLIDING SC PRN Administration Moderate Correctional Scale Sodium Chloride 10 ml 04/25/20 21:00 04/27/20 07:47 Flush - Normal Saline IVF Not Given Q12HR ESTRELLA - Exam General Appearance: awake alert Neck: JVD Heart: RRR, no murmur Respiratory: CTAB Gastrointestinal: soft, non-distended, normal bowel sounds Extremities: no edema Hosp A/P (1) Respiratory failure requiring intubation Code(s): J96.90 - RESPIRATORY FAILURE, UNSP, UNSP W HYPOXIA OR HYPERCAPNIA Status: Resolved (2) Third degree heart block Code(s): I44.2 - ATRIOVENTRICULAR BLOCK, COMPLETE Status: Acute (3) Acute renal failure Status: Resolved Qualifiers: Acute renal failure type: unspecified Qualified Code(s): N17.9 - Acute kidney failure, unspecified (4) Cardiogenic shock Code(s): R57.0 - CARDIOGENIC SHOCK Status: Resolved (5) Metabolic acidosis Code(s): E87.2 - ACIDOSIS Status: Resolved (6) Syncope and collapse Code(s): R55 - SYNCOPE AND COLLAPSE Status: Acute (7) Diabetes Code(s): E11.9 - TYPE 2 DIABETES MELLITUS WITHOUT COMPLICATIONS Status: Chronic Qualifiers: Diabetes mellitus type: type 2 Diabetes mellitus bow tacker insulin use: with skilled nursing use Diabetes mellitus complication status: with neurologic complications Diabetes mellitus complication detail: with mononeuropathy Qualified Code(s): E11.41 - Type 2 diabetes mellitus with diabetic mononeuropathy - Plan extubated-stable post pacemaker- site clean, dey cont accu/ss/ institute home meds when on diet
--- NOTE | 2020-04-27 13:15 | PRG ---
DATE OF SERVICE: 04/27/2020 SUBJECTIVE: Patient was seen and examined at bedside and overnight events noted. Patient denies any shortness of breath or chest pain or palpitation. No history of nausea or vomiting or diarrhea or fever or chills or cramps. OBJECTIVE: GENERAL: This is well-built male, in no apparent distress. VITAL SIGNS: Temperature 97.5. Pulse 74. Respiratory rate 18. Blood pressure 155/86. HEENT: Atraumatic, normocephalic. Oral mucosa is moist. NECK: Supple. CARDIOVASCULAR: S1, S2 heard. Rate and rhythm regular. RESPIRATORY: Clear to auscultation. GASTROINTESTINAL: Abdomen is soft. MUSCULOSKELETAL: No tenderness. No edema. DERMATOLOGIC: No skin rash. NEUROLOGIC: Alert and awake and oriented x3. No focal neurologic deficits. Moving all the extremities. PSYCHIATRIC: Mood and affect normal. LABORATORY DATA: Potassium 4.1, BUN is 15, creatinine is 1.13. ASSESSMENT AND PLAN: 1. Acute kidney injury on chronic kidney disease, stage 2, stable. Creatinine is much better, back to baseline. 2. Cardiorenal syndrome. 3. Hyperkalemia. 4. Acidosis. 5. Hypertension. 6. Labs are much better. I will sign off. Please call back with any questions. Job ID: [id number]
--- NOTE | 2020-04-27 17:39 | PDOC.CPN ---
- Subjective Date: 04/27/20 Time: 17:37 Interval history: He is doing much better. He feels back to normal. Extubated earlier today. - Review of Systems General: denies: fever/chills, weight/appetite/sleep changes, night sweats, fatigue Respiratory: denies: cough, congestion, shortness of breath, exercise intolerance Cardiovascular: denies: chest pain, palpitation, edema, paroxysmal nocturnal dyspnea, orthopnea Gastrointestinal: denies: nausea, vomiting, diarrhea, constipation, abd pain, GI bleeding Musculoskeletal: denies: pain, tenderness, stiffness, swelling, arthritis/ arthralgias Neurological: denies: numbness, syncope, seizure, weakness - Objective Allergies/Adverse Reactions: Allergies Allergy/AdvReac Type Severity Reaction Status Date / Time No Known Allergies Allergy Verified 03/21/16 22:13 Visit Medications: Current Medications Acetaminophen (Tylenol) 650 mg PO Q4H PRN PRN Reason: Headache/Fever/Mild Pain (1-3) Last Admin: 04/26/20 21:57 Dose: 650 mg Dextrose/Water (Dextrose 50%) 25 gm SLOW IVP PRN PRN PRN Reason: Hypoglycemia Famotidine (Pepcid) 20 mg SLOW IVP BID [facility] Last Admin: 04/27/20 07:47 Dose: 20 mg Glucagon (Glucagon) 1 mg IM PRN PRN PRN Reason: Hypoglycemia Heparin Sodium (Porcine) (Heparin) 5,000 units SC TID [facility] Last Admin: 04/27/20 16:10 Dose: 5,000 units Dobutamine HCl/Dextrose (Dobutamine 500 Mg/250 Ml) 250 mls @ 0 mls/hr IVPB INF ESTRELLA Last Admin: 04/26/20 09:22 Dose: 250 mls Dextrose/Water (D5w) 1,000 mls @ 0 mls/hr IV .Q0M PRN PRN Reason: Hypoglycemia Insulin Human Regular 100 (units/ Sodium Chloride) 101 mls @ 0 mls/hr IVPB INF ESTRELLA; Protocol Cefazolin Sodium/Dextrose 2 gm (/ Device) 50 mls @ 100 mls/hr IVPB ONCALL-OR ESTRELLA Dopamine HCl/Dextrose (Dopamine 400 Mg/D5w 250 Ml) 250 mls @ 12.188 mls/hr IVPB INF ESTRELLA; Protocol Insulin Human Regular (Humulin R) 0 units SC .MODERATE SLIDING SC PRN PRN Reason: Moderate Correctional Scale Last Admin: 04/27/20 16:11 Dose: 2 unit Ondansetron HCl (Zofran) 4 mg IVP Q6H PRN PRN Reason: Nausea/Vomiting Sodium Chloride (Flush - Normal Saline) 10 ml IVF Q12HR ESTRELLA Last Admin: 04/27/20 07:47 Dose: Not Given Sodium Chloride (Flush - Normal Saline) 10 ml IVF PRN PRN PRN Reason: Saline Flush Vital Signs & Weight: Vital Signs Temp Pulse Resp BP Pulse Ox 04/27/20 16:00 99.1 F 04/27/20 11:00 97.5 F L 04/27/20 09:16 99 04/27/20 08:00 16 04/27/20 07:54 100.0 F H 04/27/20 07:04 70 107/70 04/27/20 06:00 13 Admit Weight 286 lb Weight 286 lb 9.615 oz - Physical Exam General: alert & oriented x3 HEENT: mucus membranes moist Neck: supple neck Cardiac: regular rate and rhythm Lungs: normal breath sounds Neuro: grossly intact Abdomen: active bowel sounds Extremities: no edema Skin: clear Musculoskeletal: no pain - Labs Result Diagrams: 04/27/20 03:43 04/27/20 03:43 Troponin/CKMB CK-MB (CK-2) 1.5 ng/mL (0-6.6) 04/25/20 11:01 Troponin I 0.055 ng/mL (< 0.028) H 04/25/20 17:49 - Telemetry Sinus rhythms and dysrhythmias: sinus rhythm - Assessment/Plan Assessment/Plan: 1. Syncope 2. 3rd degree AV block. 3. S/P PPM placement. PLAN: - Discharge anytime from cardiac perspective. - He is scheduled to be out of correction this . - Will have to set up device clinic follow up with Dr. Ju[facility]rez device clinic. - Follow up with me in 4 weeks. - Will sign off. Please call with any questions.,
[2020-04-27] MEDS: Acetaminophen 325 MG TAB PO PRN (20:20)
[2020-04-27] MEDS ORDERED: HumaLOG 300 UNITS/3 ML VIAL SC PRN ×2 (20:22)
[2020-04-28] MEDS: Acetaminophen 325 MG TAB PO PRN ×3 (03:36→12:48)
[2020-04-28 05:07] LABS: #Eosinphils 0.1 thou/uL (0.0-0.7); #Lymphocytes 1.5 thou/uL (1.20-3.40); #Monocytes 0.4 thou/uL (0.11-0.59); #Neutrophils 5.4 thou/uL (1.40-6.50); %Basophils 0.4 % (0.0-1.0); %Eosinophils 1.7 % (0.0-10.0); %Lymphocytes 19.8 % (21.0-51.0); %Monocytes 5.4 % (0.0-10.0); %Neutrophils 72.7 % (42.0-75.0); Hemoglobin 12.9 g/dL (14.0-18.0); Mean Corpuscular HGB CONC 34.6 g/dL (32.0-36.0); Mean Corpuscular Hemoglobin 33.6 pg (27.0-31.0); Mean Corpuscular Volume 97.1 fL (78.0-98.0); Mean Platelet Volume 8.6 fL (7.4-10.4); Platelet Count 158 thou/uL (130-400); RBC Distribution Width 11.9 % (11.5-14.5); Red Blood Cell (RBC) Count 3.85 mill/uL (4.70-6.10); White Blood Cell (WBC) Count 7.5 thou/uL (4.8-10.8)
[2020-04-28 05:20] LABS: Anion Gap 12 mmol/L (10-20); BUN (Urea Nitrogen) 13 mg/dL (8.9-20.6); Calc. Creatinine Clearance 150 mL/min (70-130); Calcium 8.5 mg/dL (7.8-10.44); Carbon Dioxide 30 mmol/L (22-29); Chloride 103 mmol/L (98-107); Estimated GFR-MDRD 74; Glucose 159 mg/dL (70-105); Potassium 4.1 mmol/L (3.5-5.1); Sodium 141 mmol/L (136-145)
--- NOTE | 2020-04-28 07:49 | RAD ---
EXAM: CHEST ONE VIEW HISTORY: On ventilator. COMPARISON: 04/27/2020 FINDINGS: The endotracheal tube and nasogastric tubes been removed. Dual lead left subclavian cardiac pacemaker device remains in place. Cardiac silhouette is mildly enlarged and stable in size. Pulmonary vasculature is within normal limits. No consolidation or pleural fluid is identified. No other interv al change. IMPRESSION: Interval removal of the endotracheal tube and nasogastric tubes. Chest is otherwise stable.
[2020-04-28] MEDS: Heparin 5,000 UNITS/ML VIAL SC SCH ×2 (09:33→13:00)
[2020-04-28] MEDS: Famotidine/PF 20 mg/2ml Vial SLOW IVP SCH (09:34)
--- NOTE | 2020-04-28 12:29 | DIS ---
DATE OF ADMISSION: 04/25/2020 DATE OF DISCHARGE: 04/28/2020 PRIMARY CARE PHYSICIAN: Unknown, [facility] from the [facility]. FINAL DIAGNOSES: Complete atrioventricular block, unspecified convulsion, diabetes mellitus type 2, acute respiratory failure requiring intubation, diabetes mellitus type 2, hypertension, and dyslipidemia. The patient was admitted, initially put in cardiac care unit, ventilated. He had a temporary pacemaker placed on day of admission. He eventually had a permanent pacemaker placed on 04/26, pacemaker was placed in the left upper chest. CONSULTATIONS: 1. Dr. Dawit Hoffman. 2. Dr. Cedric Mckeon. LABORATORY DATA: The initial laboratory demonstrated creatinine 2.78 and BUN 43 on 04/25. At this point, his creatinine is down to 1.06 and BUN 13. He initially was hyperkalemic at 5.9. This resolved. He has normal potassium. CBC on admission white count 10.5, hemoglobin 4.2, platelets 213. COVID was negative. No cultures were done. Cardio-respiratory exam currently stable. Vital signs are stable. Cardiorespiratory exam is normal. He is being [facility] to [facility] for [facility]up. MEDICATIONS: His home medicines have been reinstituted, which are: 1. Pravastatin 10 mg a day. 2. Zestril 20 mg a day. 3. Duloxetine 30 mg a day. 4. Lopid 600 mg twice a day. 5. Aspirin 81 mg a day. 6. Metformin 500 mg twice a day. ALLERGIES: HE HAS NO KNOWN DRUG ALLERGIES. DIET: He is on a diabetic diet. CODE STATUS: Full. He is being discharged back to [facility]. I am informed that he would probably be discharged soon. He will need a primary care provider for followup. Dr. Hoffman is arranging followup Dr. [facility]rez device clinic for followup of his pacemaker. Job ID: [id number] [facility]
[2020-04-28 14:46] VITALS: BMI 42.5
[2020-04-28 16:12] VITALS: BP 132/77; TEMP 98.4
--- NOTE | 2020-04-29 07:31 | CCLSPC ---
INDICATION FOR PROCEDURE: A 49-year-old patient with complete AV heart block with severe bradycardia. He was advised to undergo dual chamber pacemaker insertion. He had previously been implanted with a temporary pacemaker, which was through the right groin area. He was taken to cardiac microbiological laboratory technician, where he underwent the procedure today without difficulties or complications. A full dictated note can be found on the chart. He was implanted with a dual chamber pacemaker from [employer], an Jeddo [id number] dual chamber pacemaker with two screw-in leads, one in the atrium and one in the ventricle. There were no difficulties or complications encountered. The pacemaker was set with the upper rate of 130. The lower rate was set at 70. There were no difficulties or complications and just prior to suturing in the leads, the temporary pacemaker was removed under fluoroscopy to ensure that the permanent leads would not be displaced. This was performed without also any difficulties, and the temporary pacemaker was removed. Then, the pacemaker pocket was closed in three layers after copious antibiotic solution was used for irrigation. Job ID: [id number]
== END 2020-04-28 14:10 | DRG 242 ==
LOC: ERS 10:38 → CCU 12:33 → 2NO 04-27 17:46
PROVIDERS: ADMIT Hospitalist; ATTEND Hospitalist
PROC: 5A1223Z Performance of Cardiac Pacing, Continuous (ICD-10-PCS; 2020-04-25)
PROC: 0BH17EZ Insertion of Endotracheal Airway into Trachea, Via Natural or Artificial Opening (ICD-10-PCS; 2020-04-25)
PROC: 5A1945Z Respiratory Ventilation, 24-96 Consecutive Hours (ICD-10-PCS; 2020-04-25)
PROC: 0JH606Z Insertion of Pacemaker, Dual Chamber into Chest Subcutaneous Tissue and Fascia, Open Approach (ICD-10-PCS; principal; 2020-04-26)
PROC: 02H63JZ Insertion of Pacemaker Lead into Right Atrium, Percutaneous Approach (ICD-10-PCS; 2020-04-26)
PROC: 02HK3JZ Insertion of Pacemaker Lead into Right Ventricle, Percutaneous Approach (ICD-10-PCS; 2020-04-26)
DX: I44.2 Atrioventricular block, complete (principal); J96.01 Acute respiratory failure with hypoxia; R57.0 Cardiogenic shock; E87.2 Acidosis; Z68.41 Body mass index [BMI] 40.0-44.9, adult; N17.9 Acute kidney failure, unspecified; N18.4 Chronic kidney disease, stage 4 (severe); Z20.828 Contact with and (suspected) exposure to other viral communicable diseases; E78.5 Hyperlipidemia, unspecified; E11.41 Type 2 diabetes mellitus with diabetic mononeuropathy; E66.01 Morbid (severe) obesity due to excess calories; R56.9 Unspecified convulsions; G89.29 Other chronic pain; E87.5 Hyperkalemia; I12.9 Hypertensive chronic kidney disease with stage 1 through stage 4 chronic kidney disease, or unspecified chronic kidney disease; E78.1 Pure hyperglyceridemia; Z79.84 Long term (current) use of oral hypoglycemic drugs; Z79.899 Other long term (current) drug therapy
CPT/HCPCS: 31500; 33208; 33210; 36415; 36416; 36556; 51702; 71045; 76770; 80048; 80053; 81003; 81015; 82553; 82805; 84484; 85025; 85610; 85730; 92953; 93306; 93798; 94002; 94003; 94760; 96365; 96375; 96376; C1785; C1898; J0171; J0690; J1250; J1265; J1580; J1644; J1815; J2060; J2704; J3010; J3490; J7070; S0028; U0002

== ENCOUNTER 2024-01-16 08:53 | Inpatient (IN) | payer SELFPAY ==
[2024-01-16 09:58] LABS: ALT (SGPT) 45 U/L (8-55); AST (SGOT) 51 U/L (5-34); Albumin 3.7 g/dL (3.5-5.0); Alkaline Phosphatase 104 U/L (40-110); Anion Gap 18 mmol/L (10-20); BUN (Urea Nitrogen) 21 mg/dL (8.4-25.7); Bilirubin, Total 0.5 mg/dL (0.2-1.2); Calc. Creatinine Clearance 0 mL/min (70-130); Calcium 9.7 mg/dL (7.8-10.44); Carbon Dioxide 18 mmol/L (22-29); Chloride 104 mmol/L (98-107); Estimated GFR 65; Globulin 4.3 g/dL (2.4-3.5); Glucose 335 mg/dL (70-105); Potassium 4.5 mmol/L (3.5-5.1); Sodium 135 mmol/L (136-145)
[2024-01-16 10:02] LABS: Troponin I Less than 0.010 ng/mL (< 0.028)
[2024-01-16 11:20] LABS: #Basophils 0.07 10x3/uL (0.0-0.2); %Basophils 0.8 % (0.0-1.0); %Eosinophils 1.2 % (0.0-10.0); %Lymphocytes 26.5 % (21.0-51.0); %Monocytes 5.4 % (0.0-10.0); %Neutrophils 65.7 % (42.0-75.0); Hematocrit 42.4 % (42.0-52.0); Mean Corpuscular HGB CONC 37.7 g/dL (32.0-36.0); Mean Corpuscular Hemoglobin 33.8 pg (27.0-31.0); Mean Corpuscular Volume 89.5 fL (78.0-98.0); Mean Platelet Volume 10.8 fL (7.4-10.4); Platelet Count 199 10x3/uL (130-400); RBC Distribution Width 12.2 % (11.5-14.5); Red Blood Cell (RBC) Count 4.74 mill/uL (4.70-6.10)
[2024-01-16] MEDS ORDERED: Aspirin Chewable 81 MG TAB ONE (13:03)
[2024-01-16] MEDS ORDERED: Glucagon 1 MG/ML KIT IM PRN (13:22)
[2024-01-16] MEDS ORDERED: Senokot S 8.6-50 MG TAB PO PRN (13:22)
[2024-01-16] MEDS ORDERED: Ondansetron ODT 4 MG TAB PO PRN (13:22)
[2024-01-16] MEDS ORDERED: Dextrose 5% in Water 1,000 ML IV PRN (13:22)
[2024-01-16] MEDS ORDERED: Acetaminophen 650 MG Suppository PR PRN (13:22)
[2024-01-16] MEDS ORDERED: Nitroglycerin 0.4 MG TAB (25 Tab Bottle) SL PRN (13:22)
[2024-01-16] MEDS ORDERED: Ondansetron PF 4 MG/2 ML Vial IVP PRN (13:22)
[2024-01-16] MEDS ORDERED: Acetaminophen 325 MG TAB PO PRN (13:22)
[2024-01-16] MEDS ORDERED: Calcium Carbonate 500 MG ChewTAB PO PRN (13:22)
[2024-01-16] MEDS ORDERED: Dextrose 50% Abboject 50 ML SYRINGE SLOW IVP PRN (13:22)
[2024-01-16] MEDS ORDERED: Electrolyte Replacement Protocol 1 EACH FS SCH (13:30)
[2024-01-16 13:51] LABS: Troponin I Less than 0.010 ng/mL (< 0.028)
[2024-01-16 14:08] VITALS: BMI 36.2
[2024-01-16] MEDS ORDERED: metFORMIN 500 MG TAB PO SCH (17:00)
[2024-01-16] MEDS: HumaLOG 300 UNITS/3 ML VIAL SC PRN ×2 (17:06→21:15)
[2024-01-16 17:35] LABS: Troponin I Less than 0.010 ng/mL (< 0.028)
[2024-01-16 17:39] LABS: Magnesium 2.2 mg/dL (1.6-2.6)
[2024-01-16] MEDS: Atorvastatin Calcium 40 MG TAB PO SCH (20:17)
[2024-01-16] MEDS: Gabapentin 300 MG CAP PO SCH (20:18)
[2024-01-16] MEDS: Famotidine 20 MG TAB PO SCH (20:18)
[2024-01-17 04:26] LABS: #Basophils 0.05 10x3/uL (0.0-0.2); %Basophils 0.7 % (0.0-1.0); %Eosinophils 3.3 % (0.0-10.0); %Lymphocytes 36.2 % (21.0-51.0); %Monocytes 7.9 % (0.0-10.0); %Neutrophils 51.5 % (42.0-75.0); Hematocrit 44.4 % (42.0-52.0); Hemoglobin 16.3 g/dL (14.0-18.0); Mean Corpuscular HGB CONC 36.7 g/dL (32.0-36.0); Mean Corpuscular Hemoglobin 33.7 pg (27.0-31.0); Mean Corpuscular Volume 91.9 fL (78.0-98.0); Mean Platelet Volume 10.9 fL (7.4-10.4); Platelet Count 173 10x3/uL (130-400); RBC Distribution Width 12.4 % (11.5-14.5); Red Blood Cell (RBC) Count 4.83 mill/uL (4.70-6.10)
[2024-01-17 05:00] LABS: Hemoglobin A1c 8.8 % (4.0-6.0)
[2024-01-17 05:19] LABS: Anion Gap 13 mmol/L (10-20); BUN (Urea Nitrogen) 22 mg/dL (8.4-25.7); Calc. Creatinine Clearance 107 mL/min (70-130); Calcium 9.3 mg/dL (7.8-10.44); Carbon Dioxide 21 mmol/L (22-29); Chloride 106 mmol/L (98-107); Cholesterol 202 mg/dl (< 200 Desired); Estimated GFR 71; Glucose 200 mg/dL (70-105); HDL Cholesterol 24 mg/dL (>60 Neg Risk); Potassium 4.6 mmol/L (3.5-5.1); Sodium 135 mmol/L (136-145); Triglycerides 588 mg/dL (Less than 150)
[2024-01-17 05:20] LABS: Cardiac Risk 8.4 (Less than 4.5)
[2024-01-17] MEDS ORDERED: Regadenoson 0.4 MG/5 ML SYRINGE ONE (09:25)
[2024-01-17] MEDS: Aspirin Chewable 81 MG TAB PO SCH (11:01)
[2024-01-17] MEDS: Mirabegron ER 25 MG ER.TAB PO SCH (11:01)
[2024-01-17] MEDS: Lisinopril 20 MG TAB PO SCH (11:01)
[2024-01-17] MEDS: Enoxaparin 40 MG (0.4 mL) SYRINGE SC SCH (11:02)
[2024-01-17 12:34] VITALS: BMI 36.2
[2024-01-17] MEDS: Gemfibrozil 600 MG TAB PO SCH (17:00)
[2024-01-17] MEDS: HumuLIN 70/30 100 Unit/ml 10 ml Vial SC SCH (21:58)
[2024-01-18 06:04] LABS: Anion Gap 20 mmol/L (10-20); BUN (Urea Nitrogen) 23 mg/dL (8.4-25.7); Calc. Creatinine Clearance 103 mL/min (70-130); Calcium 9.5 mg/dL (7.8-10.44); Carbon Dioxide 15 mmol/L (22-29); Chloride 103 mmol/L (98-107); Estimated GFR 68; Glucose 294 mg/dL (70-105); Potassium 4.3 mmol/L (3.5-5.1); Sodium 134 mmol/L (136-145)
[2024-01-18 06:34] LABS: #Basophils 0.03 10x3/uL (0.0-0.2); %Basophils 0.4 % (0.0-1.0); %Eosinophils 2.7 % (0.0-10.0); %Lymphocytes 32.1 % (21.0-51.0); %Monocytes 8.1 % (0.0-10.0); %Neutrophils 56.1 % (42.0-75.0); Hematocrit 40.3 % (42.0-52.0); Hemoglobin 15.1 g/dL (14.0-18.0); Mean Corpuscular HGB CONC 37.5 g/dL (32.0-36.0); Mean Corpuscular Hemoglobin 34.7 pg (27.0-31.0); Mean Corpuscular Volume 92.6 fL (78.0-98.0); Mean Platelet Volume 11.2 fL (7.4-10.4); Platelet Count 173 10x3/uL (130-400); RBC Distribution Width 12.2 % (11.5-14.5); Red Blood Cell (RBC) Count 4.35 mill/uL (4.70-6.10)
[2024-01-18] MEDS: Empagliflozin 25 MG TAB PO SCH (08:18)
[2024-01-18] MEDS: glipiZIDE XL 2.5 mg ER.TAB PO SCH (08:18)
[2024-01-18] MEDS: Fenofibrate Nanocrystallized 145 MG TAB PO SCH (08:18)
[2024-01-18] MEDS: Amlodipine 5 MG TAB PO SCH (08:19)
[2024-01-18 08:32] VITALS: TEMP 98.1
[2024-01-18 13:01] VITALS: BP 112/65
== END 2024-01-18 12:20 | disposition home or self-care (01) | DRG 311 ==
LOC: ERS 08:53 → 2SW 14:06 → OBSVTOIN 01-17 14:29
PROVIDERS: ADMIT Internal Medicine; ATTEND Hospitalist
DX: I20.89 Other forms of angina pectoris (principal); I10 Essential (primary) hypertension; E78.5 Hyperlipidemia, unspecified; E11.42 Type 2 diabetes mellitus with diabetic polyneuropathy; E11.65 Type 2 diabetes mellitus with hyperglycemia; Z79.82 Long term (current) use of aspirin; Z79.899 Other long term (current) drug therapy; Z79.4 Long term (current) use of insulin; Z95.0 Presence of cardiac pacemaker
CPT/HCPCS: 36415; 36416; 70450; 71045; 78452; 80048; 80053; 80061; 83036; 83735; 84443; 84484; 85025; 93005; 93017; 93306; 93880; 94760; A9502; J1650; J1815; J2785

== ENCOUNTER 2025-06-19 09:53 | Emergency (ER) | payer SELFPAY ==
[2025-06-19 10:41] LABS: #Basophils 0.03 10x3/uL (0.0-0.2); #Eosinophils 0.09 10x3/uL (0.0-0.7); #Monocytes 0.38 10x3/uL (0.11-0.59); #Neutrophils 4.25 10x3/uL (1.40-6.50); %Basophils 0.5 % (0.0-1.0); %Eosinophils 1.4 % (0.0-10.0); %Lymphocytes 28.1 % (21.0-51.0); %Monocytes 5.7 % (0.0-10.0); %Neutrophils 64.0 % (42.0-75.0); Hematocrit 43.7 % (42.0-52.0); Hemoglobin 16.4 g/dL (14.0-18.0); Mean Corpuscular Hemoglobin 33.6 pg (27.0-31.0); Mean Corpuscular Volume 89.5 fL (78.0-98.0); Platelet Count 171 10x3/uL (130-400); Red Blood Cell (RBC) Count 4.88 mill/uL (4.70-6.10); White Blood Cell (WBC) Count 6.63 10x3/uL (4.8-10.8)
[2025-06-19 11:08] LABS: ALT (SGPT) 55 U/L (Less than 45); Albumin 3.3 g/dL (3.1-4.5); Alkaline Phosphatase 152 U/L (40-110); Anion Gap 17 mmol/L (10-20); BUN (Urea Nitrogen) 16 mg/dL (8.4-25.7); Bilirubin, Total 0.8 mg/dL (0.3-1.2); Calc. Creatinine Clearance 0 mL/min (70-130); Calcium 9.3 mg/dL (7.8-10.44); Carbon Dioxide 24 mmol/L (22-29); Chloride 92 mmol/L (98-107); Globulin 5.3 g/dL (2.4-3.5); Glucose 487 mg/dL (70-105); Potassium 4.7 mmol/L (3.5-5.1); Sodium 128 mmol/L (136-145)
[2025-06-19] MEDS ORDERED: Ketorolac Tromethamine 30 MG (1 mL) VIAL ONE (11:52)
[2025-06-19] MEDS ORDERED: Ondansetron PF 4 MG/2 ML Vial ONE (11:52)
[2025-06-19 12:08] LABS: Actual Bicarbonate (HCO3v) 24.5 mEq/L (22-28); Base Excess -0.4 mEq/L (-2.0 to +3.0); Calcium, Ionized (venous) 1.12 mmol/L (1.16-1.32); Chloride (VBG) 99 mmol/L (98-106); Hematocrit-VBG 47 % (42.0-52.0); Hemoglobin (Hb) 15.9 g/dL (13.1-17.2); Potassium (VBG) 4.42 mmol/L (3.70-5.30); Sodium 136 mmol/L (133-146)
[2025-06-19 12:55] LABS: AST (SGOT) 64 U/L (11-34)
[2025-06-19 13:39] LABS: CAUTI Indications for Culture Alt mental st,lethar; Glucose, Urine (Dipstick) Greater than 1000 mg/dL (Negative); Leukocyte Negative Leu/uL (Negative); Protein, Urine (Dipstick) 10 mg/dL (Neg-Trace); RBC/HPF None Seen HPF (0-3); Specific Gravity, Urine 1.033 (1.002-1.036); WBC/HPF None Seen HPF (0-3)
[2025-06-19 13:47] LABS: Bacteria/HPF 1+ HPF (None Seen)
[2025-06-19 13:48] LABS: Urine Culture Reflex No No
== END 2025-06-19 13:20 | disposition home or self-care (01) ==
LOC: ERS 09:53
DX: R07.89 Other chest pain (principal); M54.6 Pain in thoracic spine; E11.9 Type 2 diabetes mellitus without complications; I10 Essential (primary) hypertension
CPT/HCPCS: 36415; 71045; 80053; 81001; 82010; 82805; 84484; 85025; 93005; 96374; 96375; J1885; J2405